=== PATIENT | female | born 1955 | race Caucasian/White ===

== ENCOUNTER 2016-04-21 08:24 | Emergency (ER) | payer BC ==
[~2016-04-21] VITALS: Ht 162.6 cm; Wt 68.0 kg
[2016-04-21 08:28] VITALS: BP 129/74; PULSE 98; RESP 16; TEMP 98; O2SAT 96
[2016-04-21] MEDS ORDERED: METF500T PO (08:42)
[2016-04-21] MEDS ORDERED: ACETAMINOPHEN 325 MG TAB PO ONE (08:45)
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
--- NOTE | 2016-04-21 09:31 | RADHPO ---
EXAM DATE/TIME: 04/21/2016 08:43 [facility] COMPARISON: No previous studies available for comparison. INDICATIONS: Fall, left wrist pain. MEDICAL HISTORY: None. SURGICAL HISTORY: None. ENCOUNTER: Initial ACUITY: 1 day PAIN SCORE: 6/10 LOCATION: Left wrist FINDINGS: There is impacted fracture of distal radius. T-shape component does involve the radiocarpal joint. Ulnar styloid is fractured as well. Alignment is reasonably anatomic. Carpus is intact. CONCLUSION: Fractured distal radius. Hilario Best MD FACR on April 21, 2016 at 9:13 Board Certified Radiologist. This report was verified electronically.
[2016-04-21] MEDS ORDERED: ACET500T36 PO (10:41)
== END 2016-04-21 11:05 | disposition home or self-care (01) ==
LOC: PHED 08:24
DX: S52.502A Unspecified fracture of the lower end of left radius, initial encounter for closed fracture (principal); E11.9 Type 2 diabetes mellitus without complications; I10 Essential (primary) hypertension; W01.0XXA Fall on same level from slipping, tripping and stumbling without subsequent striking against object, initial encounter; Y92.002 Bathroom of unspecified non-institutional (private) residence as the place of occurrence of the external cause
CPT/HCPCS: 29125; 73100